=== PATIENT | female | born 1985 | race Two or more races ===

== ENCOUNTER 2023-02-04 14:43 | Emergency (ER) | payer MEDICAID ==
[~2023-02-04] VITALS: Ht 167.6 cm; Wt 101.7 kg
[2023-02-04 17:08] VITALS: TEMP 98.2; O2SAT 97
[2023-02-04] MEDS ORDERED: cefTRIAXone SOD 1,000 MG VL IM ONE (18:00)
[2023-02-04] MEDS ORDERED: DexAMETHasone SOD PHOS 10MG/1ML VIAL INJ IM ONE (18:00)
[2023-02-04] MEDS ORDERED: MORPHINE SULFATE INJ 2 MG/ml SYRG IM ONE ×2 (18:00→18:15)
[2023-02-04 18:05] VITALS: BP 136/83; PULSE 110; RESP 18
[2023-02-04] MEDS ORDERED: AMOXSUS6 PO (18:06)
== END 2023-02-04 18:06 | disposition home or self-care (01) ==
LOC: ER 14:43
DX: K04.7 Periapical abscess without sinus (principal); F17.210 Nicotine dependence, cigarettes, uncomplicated; F12.10 Cannabis abuse, uncomplicated
CPT/HCPCS: 96372; 99284; J0696; J1100; J2270

== ENCOUNTER 2023-06-10 18:31 | Emergency (ER) | payer MEDICAID, OTHER ==
[~2023-06-10] VITALS: Ht 165.1 cm; Wt 81.4 kg
[~2023-06-10 18:31] MED LIST: AMOX1SUS99 PO
[2023-06-10 18:55] VITALS: BP 130/87; PULSE 105; RESP 16; O2SAT 98
[2023-06-11] MEDS ORDERED: NAPR-957 PO (08:04)
[2023-06-11] MEDS ORDERED: CEPH500C PO (08:04)
== END 2023-06-10 21:59 | disposition left against medical advice (07) ==
LOC: ER 18:31
DX: L03.019 Cellulitis of unspecified finger (principal); Z53.21 Procedure and treatment not carried out due to patient leaving prior to being seen by health care provider

== ENCOUNTER 2023-06-11 06:14 | Emergency (ER) | payer MEDICAID, OTHER ==
[~2023-06-11] VITALS: Ht 165.1 cm; Wt 81.8 kg
[~2023-06-11 06:14] MED LIST changes: -AMOX1SUS99 PO; +AMOXSUS6 PO
[2023-06-11 07:42] VITALS: BP 135/91; PULSE 97; RESP 15; TEMP 97.5; O2SAT 98
[2023-06-11] MEDS ORDERED: NAPR-957 PO (08:04)
[2023-06-11] MEDS ORDERED: CEPH500C PO (08:04)
== END 2023-06-11 08:04 | disposition home or self-care (01) ==
LOC: ER 06:14
DX: L60.9 Nail disorder, unspecified (principal); F17.210 Nicotine dependence, cigarettes, uncomplicated; Z79.2 Long term (current) use of antibiotics; Z79.899 Other long term (current) drug therapy